=== PATIENT | male | born 1965 | race African-American/Black ===

== ENCOUNTER 2021-02-26 10:56 | Inpatient (IN) | payer MEDICAID ==
[~2021-02-26] VITALS: Ht 180.3 cm; Wt 87.5 kg
[2021-02-26] MEDS ORDERED: DEXAMETHASONE 10 MG/ML VIAL IV ONE (11:45)
[2021-02-26] MEDS ORDERED: AZITHROMYCIN 500MG/250ML 250 ML IV ONE (11:45)
[2021-02-26 12:08] LABS: HEMATOCRIT. 43.4 % (42.0-52.0); HEMOGLOBIN. 13.7 g/dL (14.0-18.0); MEAN CORPUSCULAR HEMOGLOBIN 22.8 pg (28.0-32.0); MEAN PLATELET VOLUME 8.4 fl (7.4-10.4); PLATELET 231 x1000/uL (130-400); RED BLOOD CELL COUNT 6.04 mill/uL (4.7-6.1); RED CELL DISTRIBUTION WIDTH 14.1 % (11.6-14.6)
[2021-02-26 12:15] LABS: CHLORIDE 99 mEq/L (98-107)
[2021-02-26 12:25] LABS: D-DIMER 1.18 mg/L FEU (<0.50); PROTHROMBIN TIME 10.3 sec (9.6-11.0)
[2021-02-26 12:39] LABS: CREATINE KINASE 2900 IU/L (39-308)
[2021-02-26 13:35] LABS: BG BASE EXCESS 2.6 mmol/L (-2.0-2.0); BG CARBOXYHEMOGLOBIN 0.5 % (0.5-1.5); BG DEOXYHEMOGLOBIN 12.8 % (0.0-5.0); BG METHEMOGLOBIN 0.2 % (0.0-1.5); BG OXYGEN SATURATION 87.1 % (92.0-98.5); BG OXYHEMOGLOBIN 86.5 % (94.0-97.0); BG PCO2 36.1 mmHg (35.0-45.0); BG PH 7.475 (7.350-7.450); BG PO2 49.1 mmHg (75.0-100.0); BG SAMPLE SITE RIGHT RADIAL; BG TOTAL HEMOGLOBIN 14.7 g/dL (12.0-18.0); BG VENT MODE VAPOTHERM
[2021-02-26 13:50] LABS: PLATELET ESTIMATE NORMAL
[2021-02-26] MEDS ORDERED: DEXAMETHASONE 10 MG/ML VIAL IV SCH (14:15)
[2021-02-26] MEDS ORDERED: CEFTRIAXONE 1 G PREMIX 50 ML IV NR (14:15)
[2021-02-26 14:46] LABS: CLARITY URINE CLEAR (CLEAR); COLOR URINE DARK YELLOW (YELLOW); KETONES URINE TRACE (NEGATIVE); LEUKOCYTE ESTERASE URINE NEGATIVE (NEGATIVE); NITRITE URINE NEGATIVE (NEGATIVE); OCCULT BLOOD URINE 3+ (NEGATIVE); PH URINE 6.5 (4.5-8.0); PROTEIN URINE 3+ (NEGATIVE); SPECIFIC GRAVITY URINE 1.024 (1.005-1.030)
[2021-02-26] MEDS: ENOXAPARIN 40MG/0.4ML SYR SUBCUT SCH (15:03)
[2021-02-26] MEDS ORDERED: KCL 20MEQ/100ML PREMIX 100 ML IV NR (17:00)
[2021-02-26] MEDS: LEVOFLOXACIN 750MG PREMIX 150 ML IV SCH (17:17)
[2021-02-27 01:46] LABS: BG BASE EXCESS 2.7 mmol/L (-2.0-2.0); BG CARBOXYHEMOGLOBIN 0.3 % (0.5-1.5); BG FRACTION INSPIRED OXYGEN 100; BG HCO3 ACT 26.4 mmol/L (22.0-26.0); BG METHEMOGLOBIN 0.2 % (0.0-1.5); BG OXYHEMOGLOBIN 94.5 % (94.0-97.0); BG PCO2 37.6 mmHg (35.0-45.0); BG PH 7.464 (7.350-7.450); BG PO2 68.6 mmHg (75.0-100.0); BG SAMPLE SITE RIGHT RADIAL; BG TOTAL HEMOGLOBIN 15.2 g/dL (12.0-18.0); BG TOTAL RESPIRATORY RATE 45 b/min; BG VENT MODE MASK - BIPAP
[2021-02-27] MEDS ORDERED: AZITHROMYCIN 250 MG in DEXT 5% WATER 250 ML IV SCH (09:00)
[2021-02-27] MEDS ORDERED: DEXAMETHASONE 10 MG/ML VIAL IV SCH (09:00)
[2021-02-27] MEDS: DEXAMETHASONE 10 MG/ML VIAL IV SCH (09:18)
[2021-02-27] MEDS ORDERED: ALBUTEROL 6.7GM HFA INHALER ORI PRN (14:15)
[2021-02-27] MEDS: ENOXAPARIN 40MG/0.4ML SYR SUBCUT SCH (14:41)
[2021-02-27] MEDS ORDERED: VANCOMYCIN 1,750 MG in DEXT 5% WATER 500 ML IV NR (15:00)
[2021-02-27] MEDS: LEVOFLOXACIN 750MG PREMIX 150 ML IV SCH (17:08)
[2021-02-27 21:30] VITALS: BP 123/76
[2021-02-27 23:02] VITALS: BP 120/76
[2021-02-28] VITALS: BP 129/77
[2021-02-28] MEDS ORDERED: VANCOMYCIN 1 G PREMIX 200 ML IV SCH (03:00)
[2021-02-28 04:00] VITALS: BP 116/68
[2021-02-28 06:43] LABS: CHLORIDE 102 mEq/L (98-107)
[2021-02-28 07:15] LABS: HEMATOCRIT. 43.4 % (42.0-52.0); HEMOGLOBIN. 13.8 g/dL (14.0-18.0); MEAN CORPUSCULAR HEMOGLOBIN 23.2 pg (28.0-32.0); MEAN CORPUSCULAR VOLUME 72.7 fL (80.0-94.0); MEAN PLATELET VOLUME 8.3 fl (7.4-10.4); PLATELET 312 x1000/uL (130-400); RED BLOOD CELL COUNT 5.97 mill/uL (4.7-6.1); RED CELL DISTRIBUTION WIDTH 14.1 % (11.6-14.6)
[2021-02-28] MEDS: DEXAMETHASONE 10 MG/ML VIAL IV SCH (08:40)
[2021-02-28] MEDS: ENOXAPARIN 40MG/0.4ML SYR SUBCUT SCH (14:36)
[2021-02-28 15:21] VITALS: BP 116/73
[2021-02-28] MEDS: LEVOFLOXACIN 750MG PREMIX 150 ML IV SCH (16:55)
[2021-02-28 20:00] VITALS: BP 116/75
[2021-02-28 22:48] LABS: *AMPHETAMINES SCREEN URINE NEGATIVE (NEGATIVE); *BARBITURATES SCREEN URINE NEGATIVE (NEGATIVE); *BENZODIAZEPINES SCREEN URINE NEGATIVE (NEGATIVE); *COCAINE SCREEN URINE NEGATIVE (NEGATIVE)
[2021-02-28 22:49] LABS: CANNABINOID URINE SCREEN NEGATIVE (NEGATIVE); METHADONE URINE SCREEN NEGATIVE (NEGATIVE); OPIATES URINE SCREEN NEGATIVE (NEGATIVE); PHENCYCLIDINE URINE SCREEN NEGATIVE (NEGATIVE)
[2021-03-01] VITALS: BP 113/66
[2021-03-01 04:00] VITALS: BP 121/73
[2021-03-01 08:00] VITALS: BP 121/74
[2021-03-01] MEDS: DEXAMETHASONE 10 MG/ML VIAL IV SCH (09:36)
[2021-03-01 12:00] VITALS: BP 126/83
[2021-03-01] MEDS: ACETAMINOPHEN 325MG TABLET PO PRN (12:39)
[2021-03-01] MEDS: ENOXAPARIN 40MG/0.4ML SYR SUBCUT SCH (14:07)
[2021-03-01 15:00] LABS: PLATELET ESTIMATE NORMAL
[2021-03-01 16:00] VITALS: BP 133/50
[2021-03-01 16:30] LABS: BG BASE EXCESS 4.1 mmol/L (-2.0-2.0); BG CARBOXYHEMOGLOBIN 0.4 % (0.5-1.5); BG DEOXYHEMOGLOBIN 4.4 % (0.0-5.0); BG FRACTION INSPIRED OXYGEN 100; BG HCO3 ACT 28.5 mmol/L (22.0-26.0); BG METHEMOGLOBIN 0.4 % (0.0-1.5); BG OXYGEN SATURATION 95.6 % (92.0-98.5); BG OXYHEMOGLOBIN 94.8 % (94.0-97.0); BG PCO2 41.6 mmHg (35.0-45.0); BG PH 7.453 (7.350-7.450); BG PO2 73.2 mmHg (75.0-100.0); BG SAMPLE SITE RIGHT RADIAL; BG TOTAL HEMOGLOBIN 14.9 g/dL (12.0-18.0); BG TOTAL RESPIRATORY RATE 29 b/min; BG VENT MODE MASK - BIPAP
[2021-03-01] MEDS: LEVOFLOXACIN 750MG PREMIX 150 ML IV SCH (17:37)
[2021-03-02] MEDS: GUAIFENESIN-DM 200MG-20MG/10ML UDC PO PRN ×5 (02:53→22:43)
[2021-03-02 04:00] VITALS: BP 145/86
[2021-03-02] MEDS: ACETAMINOPHEN 325MG TABLET PO PRN (05:27)
[2021-03-02 08:00] VITALS: BP 117/72
[2021-03-02] MEDS: DEXAMETHASONE 10 MG/ML VIAL IV SCH (08:08)
[2021-03-02 12:00] VITALS: BP 119/73
[2021-03-02] MEDS: ENOXAPARIN 40MG/0.4ML SYR SUBCUT SCH (13:59)
[2021-03-02 16:00] VITALS: BP 129/82
[2021-03-02] MEDS: LEVOFLOXACIN 750MG PREMIX 150 ML IV SCH (17:39)
[2021-03-02 20:00] VITALS: BP 127/77
[2021-03-02] MEDS: AZTREONAM 2 GM in DEXT 5% WATER 100 ML IV SCH (21:30)
[2021-03-03] VITALS (21 sets, daily range): BP systolic 62–137; BP diastolic 27–84
[2021-03-03] MEDS: AZTREONAM 2 GM in DEXT 5% WATER 100 ML IV SCH ×3 (05:15→20:48)
[2021-03-03] MEDS ORDERED: ETOMIDATE 2MG/ML 10ML VIAL IV ONE (08:36)
[2021-03-03] MEDS ORDERED: SUCCINYLCHOLINE CHLORIDE 200MG/10ML IV ONE (08:36)
[2021-03-03] MEDS: GUAIFENESIN-DM 200MG-20MG/10ML UDC PO PRN (11:12)
[2021-03-03] MEDS: DEXAMETHASONE 10 MG/ML VIAL IV SCH (14:12)
[2021-03-03] MEDS: ENOXAPARIN 40MG/0.4ML SYR SUBCUT SCH (14:12)
[2021-03-03] MEDS ORDERED: MIDAZOLAM 100MG/100ML PMX 100 ML IV PRN (17:15)
[2021-03-03 17:18] LABS: BG BASE EXCESS -1.1 mmol/L (-2.0-2.0); BG CARBOXYHEMOGLOBIN 0.5 % (0.5-1.5); BG DEOXYHEMOGLOBIN 48.9 % (0.0-5.0); BG FRACTION INSPIRED OXYGEN 100; BG HCO3 ACT 23.5 mmol/L (22.0-26.0); BG METHEMOGLOBIN 0.3 % (0.0-1.5); BG OXYGEN SATURATION 50.7 % (92.0-98.5); BG OXYHEMOGLOBIN 50.3 % (94.0-97.0); BG PCO2 39.4 mmHg (35.0-45.0); BG PH 7.394 (7.350-7.450); BG PO2 < 30.3 mmHg (75.0-100.0); BG SAMPLE SITE RIGHT BRACHIAL; BG TOTAL HEMOGLOBIN 17.4 g/dL (12.0-18.0); BG VENT MODE MASK - BIPAP
[2021-03-03] MEDS ORDERED: VECURONIUM BROMIDE 10 MG/VIAL IV NR (18:30)
[2021-03-03 18:49] LABS: BG BASE EXCESS -10.4 mmol/L (-2.0-2.0); BG FRACTION INSPIRED OXYGEN 100; BG HCO3 ACT 18.1 mmol/L (22.0-26.0); BG PCO2 49.5 mmHg (35.0-45.0); BG PO2 < 30.3 mmHg (75.0-100.0); BG SAMPLE SITE RIGHT RADIAL; BG VENT MODE PRVC
[2021-03-03] MEDS: FENTANYL CITRATE/PF 2,500 MCG in SODIUM CHLORIDE 0.9% 200 ML IV PRN (18:51)
[2021-03-03] MEDS: MIDAZOLAM HCL 100 MG in SODIUM CHLORIDE 0.9% 100 ML IV PRN ×2 (18:52→23:35)
[2021-03-03] MEDS ORDERED: SODIUM BICARBONATE 8.4% 1 MEQ/ML 50ML SYR IV NR (19:30)
[2021-03-03] MEDS: PHENYLEPHRINE 100 MG in DEXT 5% WATER 240 ML IV PRN (20:29)
[2021-03-03] MEDS: PROPOFOL 10MG/ML 100ML 100 ML IV PRN (20:42)
[2021-03-03] MEDS ORDERED: SODIUM BICARBONATE 8.4% 1 MEQ/ML 50ML SYR IV ONE (20:58)
[2021-03-03] MEDS ORDERED: NOREPINEPHRINE 8 MG in DEXT 5% WATER 242 ML IV PRN (21:00)
[2021-03-03] MEDS ORDERED: SODIUM CHLORIDE 0.9% 1,000 ML IV ONE (21:00)
[2021-03-03] MEDS: SODIUM CHLORIDE 0.9% 1,000 ML IV SCH (21:15)
[2021-03-04] VITALS (92 sets, daily range): BP systolic 78–135; BP diastolic 41–87
[2021-03-04] MEDS: NOREPINEPHRINE 32 MG in DEXT 5% WATER 218 ML IV PRN (00:40)
[2021-03-04] MEDS: FENTANYL CITRATE/PF 2,500 MCG in SODIUM CHLORIDE 0.9% 200 ML IV PRN ×3 (01:17→18:33)
[2021-03-04] MEDS: PHENYLEPHRINE 100 MG in DEXT 5% WATER 240 ML IV PRN ×4 (02:49→21:40)
[2021-03-04] MEDS: AZTREONAM 2 GM in DEXT 5% WATER 100 ML IV SCH ×2 (04:11→11:30)
[2021-03-04] MEDS: SODIUM CHLORIDE 0.9% 1,000 ML IV SCH ×2 (04:48→13:35)
[2021-03-04] MEDS: MIDAZOLAM HCL 100 MG in SODIUM CHLORIDE 0.9% 100 ML IV PRN ×3 (06:32→22:38)
[2021-03-04] MEDS: DEXAMETHASONE 10 MG/ML VIAL IV SCH (09:01)
[2021-03-04] MEDS: PROPOFOL 10MG/ML 100ML 100 ML IV PRN ×2 (09:03→23:53)
[2021-03-04 11:27] LABS: HEMATOCRIT. 52.4 % (42.0-52.0); HEMOGLOBIN. 16.4 g/dL (14.0-18.0); MEAN CORPUSCULAR VOLUME 73.3 fL (80.0-94.0); RED BLOOD CELL COUNT 7.14 mill/uL (4.7-6.1); RED CELL DISTRIBUTION WIDTH 15.3 % (11.6-14.6)
[2021-03-04 12:57] LABS: BG BASE EXCESS -8.4 mmol/L (-2.0-2.0); BG CARBOXYHEMOGLOBIN 0.6 % (0.5-1.5); BG DEOXYHEMOGLOBIN 4.6 % (0.0-5.0); BG FRACTION INSPIRED OXYGEN 100; BG HCO3 ACT 17.9 mmol/L (22.0-26.0); BG METHEMOGLOBIN 0.4 % (0.0-1.5); BG OXYGEN SATURATION 95.4 % (92.0-98.5); BG OXYHEMOGLOBIN 94.4 % (94.0-97.0); BG PCO2 39.5 mmHg (35.0-45.0); BG PH 7.273 (7.350-7.450); BG SAMPLE SITE RIGHT RADIAL; BG VENT MODE PRVC
[2021-03-04] MEDS ORDERED: IPRATROPIUM/ALBUTEROL 0.5-3(2.5)MG/3ML NEB HHN PRN (13:30)
[2021-03-04] MEDS ORDERED: SODIUM BICARBONATE 8.4% 1 MEQ/ML 50ML SYR IV SCH (13:30)
[2021-03-04] MEDS: ENOXAPARIN 40MG/0.4ML SYR SUBCUT SCH (13:37)
[2021-03-04] MEDS ORDERED: VECURONIUM BROMIDE 10 MG/VIAL IV NR (15:30)
[2021-03-04] MEDS: IPRATROPIUM/ALBUTEROL 0.5-3(2.5)MG/3ML NEB HHN SCH (16:07)
[2021-03-04] MEDS: MEROPENEM 1,000 MG in SODIUM CHLORIDE 0.9% 100 ML IV SCH (16:12)
[2021-03-04 16:40] LABS: MEAN PLATELET VOLUME 8.7 fl (7.4-10.4)
[2021-03-04 16:41] LABS: PLATELET 108 x1000/uL (130-400)
[2021-03-04] MEDS ORDERED: VANCOMYCIN 1 G PREMIX 200 ML IV NR (17:00)
[2021-03-05] VITALS (94 sets, daily range): BP systolic 30–162; BP diastolic 17–106
[2021-03-05] MEDS: IPRATROPIUM/ALBUTEROL 0.5-3(2.5)MG/3ML NEB HHN SCH ×3 (00:17→13:04)
[2021-03-05] MEDS: FENTANYL CITRATE/PF 2,500 MCG in SODIUM CHLORIDE 0.9% 200 ML IV PRN ×2 (02:43→09:31)
[2021-03-05] MEDS: SODIUM CHLORIDE 0.9% 1,000 ML IV SCH (03:14)
[2021-03-05] MEDS: PHENYLEPHRINE 100 MG in DEXT 5% WATER 240 ML IV PRN ×3 (03:15→17:03)
[2021-03-05] MEDS: NOREPINEPHRINE 32 MG in DEXT 5% WATER 218 ML IV PRN ×2 (04:47→17:34)
[2021-03-05] MEDS: MIDAZOLAM HCL 100 MG in SODIUM CHLORIDE 0.9% 100 ML IV PRN ×3 (04:59→20:25)
[2021-03-05] MEDS: PROPOFOL 10MG/ML 100ML 100 ML IV PRN ×2 (07:43→14:58)
[2021-03-05] MEDS: DEXAMETHASONE 10 MG/ML VIAL IV SCH (09:31)
[2021-03-05] MEDS ORDERED: SODIUM POLYSTYRENE SULFONATE 15 G/60 ML BOT NG SCH (10:30)
[2021-03-05] MEDS ORDERED: SODIUM BICARBONATE 8.4% 1 MEQ/ML 50ML SYR IV SCH (10:30)
[2021-03-05 11:43] LABS: BG BASE EXCESS -11.3 mmol/L (-2.0-2.0); BG CARBOXYHEMOGLOBIN 0.1 % (0.5-1.5); BG DEOXYHEMOGLOBIN 3.3 % (0.0-5.0); BG FRACTION INSPIRED OXYGEN 100; BG HCO3 ACT 18.9 mmol/L (22.0-26.0); BG METHEMOGLOBIN 0.4 % (0.0-1.5); BG OXYGEN SATURATION 96.7 % (92.0-98.5); BG OXYHEMOGLOBIN 96.2 % (94.0-97.0); BG PCO2 61.4 mmHg (35.0-45.0); BG PH 7.107 (7.350-7.450); BG PO2 114.1 mmHg (75.0-100.0); BG SAMPLE SITE LEFT RADIAL; BG TOTAL HEMOGLOBIN 14.4 g/dL (12.0-18.0); BG VENT MODE VENT - P/C
[2021-03-05] MEDS ORDERED: CALCIUM GLUCONATE 1,000 MG in DEXT 5% WATER 90 ML IV ONE (11:45)
[2021-03-05] MEDS ORDERED: SODIUM POLYSTYRENE SULFONATE 15 G/60 ML BOT PO NR ×2 (11:45→21:45)
[2021-03-05] MEDS ORDERED: SODIUM BICARBONATE 8.4% 1 MEQ/ML 50ML SYR IV NR ×2 (11:45→17:00)
[2021-03-05] MEDS ORDERED: SODIUM BICARBONATE 150 MEQ in DEXTROSE 5% WATER 1,000 ML IV SCH (12:00)
[2021-03-05] MEDS ORDERED: CALCIUM GLUCONATE 1GM PREMIX 50 ML IV SCH ×2 (12:00→21:00)
[2021-03-05] MEDS ORDERED: VASOPRESSIN 20 UNIT in SODIUM CHLORIDE 0.9% 99 ML IV PRN ×2 (12:00→17:30)
[2021-03-05] MEDS ORDERED: CALCITRIOL 1MCG/ML AMP IV SCH (12:30)
[2021-03-05] MEDS ORDERED: VANCOMYCIN 500 MG PREMIX 100 ML IV NR (13:00)
[2021-03-05 16:02] LABS: BG CARBOXYHEMOGLOBIN 0.1 % (0.5-1.5); BG FRACTION INSPIRED OXYGEN 100; BG HCO3 ACT 12.2 mmol/L (22.0-26.0); BG METHEMOGLOBIN 0.5 % (0.0-1.5); BG OXYHEMOGLOBIN 96.4 % (94.0-97.0); BG PCO2 50.3 mmHg (35.0-45.0); BG PH 7.004 (7.350-7.450); BG PO2 126.3 mmHg (75.0-100.0); BG SAMPLE SITE LEFT RADIAL; BG TOTAL HEMOGLOBIN 14.7 g/dL (12.0-18.0); BG VENT MODE VENT - P/C
[2021-03-05] MEDS ORDERED: ASPIRIN 81MG TABLET PO SCH (17:15)
[2021-03-05] MEDS ORDERED: CLOPIDOGREL 75MG TABLET PO SCH (17:15)
[2021-03-05 17:19] LABS: NUCLEATED RED BLOOD CELLS 1 /100 WBC
[2021-03-05 17:20] LABS: PLATELET ESTIMATE DECREASED
[2021-03-05] MEDS: MEROPENEM 1,000 MG in SODIUM CHLORIDE 0.9% 100 ML IV SCH (17:38)
[2021-03-05] MEDS ORDERED: ATORVASTATIN CALCIUM 40MG TABLET PO SCH (21:00)
[2021-03-05] MEDS: IPRATROPIUM BROMIDE (0.02%) 0.5MG/2.5ML NEB HHN SCH (21:03)
[2021-03-05] MEDS ORDERED: INSULIN GLARGINE UD 100 UNITS/ML SYR SUBCUT NR (21:45)
[2021-03-05] MEDS ORDERED: DEXTROSE 50% WATER 50ML SYRINGE IV ONE (21:45)
[2021-03-05] MEDS ORDERED: HYDROCORTISONE SOD SUCCINATE 100 MG/2 ML VIAL IV SCH (22:00)
[2021-03-05] MEDS ORDERED: DOPAMINE 800MG PREMIX (DOUBLE) 250 ML IV PRN (23:15)
[2021-03-05] MEDS ORDERED: MIDODRINE HCL 5MG TABLET PO SCH (23:15)
[2021-03-06] VITALS (14 sets, daily range): BP systolic 69–125; BP diastolic 16–79
[2021-03-06] MEDS: PHENYLEPHRINE 100 MG in DEXT 5% WATER 240 ML IV PRN (00:04)
[2021-03-06] MEDS: NOREPINEPHRINE 32 MG in DEXT 5% WATER 218 ML IV PRN (00:05)
[2021-03-06] MEDS: IPRATROPIUM BROMIDE (0.02%) 0.5MG/2.5ML NEB HHN SCH (00:46)
[2021-03-06 01:36] LABS: HEMATOCRIT. 46.4 % (42.0-52.0); HEMOGLOBIN. 12.8 g/dL (14.0-18.0); MEAN CORPUSCULAR HEMOGLOBIN 22.8 pg (28.0-32.0); MEAN CORPUSCULAR VOLUME 82.4 fL (80.0-94.0); RED BLOOD CELL COUNT 5.63 mill/uL (4.7-6.1)
[2021-03-06 08:24] LABS: PLATELET ESTIMATE DECREASED
[2021-03-06 08:27] LABS: MEAN PLATELET VOLUME 8.8 fl (7.4-10.4); PLATELET 54 x1000/uL (130-400)
[2021-03-06] MEDS ORDERED: SODIUM BICARBONATE 8.4% 1 MEQ/ML 50ML SYR IV ONE (09:18)
[2021-03-06] MEDS ORDERED: EPINEPHRINE 0.1MG/ML (1:10,000) 10ML SYR ONE (09:18)
[2021-03-06] MEDS ORDERED: DEXTROSE 50% WATER 50ML SYRINGE IV ONE (09:18)
[2021-03-06] MEDS ORDERED: CALCIUM CHLORIDE 1GM/10ML SYR IV ONE (09:18)
== END 2021-03-06 02:44 | DRG 720 ==
LOC: ER 11:20 → MICUSO 13:51 → EDBEDREQSVC 13:53 → 7EST 02-27 21:22 → 7WST 03-04 06:38 → MICUSO 03-05 06:00
PROVIDERS: ADMIT Family Medicine Adult Medicine; ATTEND Family Medicine Adult Medicine
PROC: 5A0935A Assistance with Respiratory Ventilation, Less than 24 Consecutive Hours, High Flow/Velocity Cannula (ICD-10-PCS; principal; 2021-02-26)
PROC: 5A09557 Assistance with Respiratory Ventilation, Greater than 96 Consecutive Hours, Continuous Positive Airway Pressure (ICD-10-PCS; 2021-02-26)
PROC: 5A1945Z Respiratory Ventilation, 24-96 Consecutive Hours (ICD-10-PCS; 2021-03-03)
PROC: 0BH17EZ Insertion of Endotracheal Airway into Trachea, Via Natural or Artificial Opening (ICD-10-PCS; 2021-03-03)
PROC: 06HY33Z Insertion of Infusion Device into Lower Vein, Percutaneous Approach (ICD-10-PCS; 2021-03-03)
PROC: 5A12012 Performance of Cardiac Output, Single, Manual (ICD-10-PCS; 2021-03-06)
DX: A41.89 Other specified sepsis (principal); I46.9 Cardiac arrest, cause unspecified; I63.9 Cerebral infarction, unspecified; J12.82 Pneumonia due to coronavirus disease 2019; J96.01 Acute respiratory failure with hypoxia; U07.1 COVID-19; E44.0 Moderate protein-calorie malnutrition; R65.21 Severe sepsis with septic shock; G93.40 Encephalopathy, unspecified; J45.909 Unspecified asthma, uncomplicated; E87.6 Hypokalemia; M62.82 Rhabdomyolysis; E88.09 Other disorders of plasma-protein metabolism, not elsewhere classified; F17.210 Nicotine dependence, cigarettes, uncomplicated; D89.839 Cytokine release syndrome, grade unspecified; E83.51 Hypocalcemia; E87.2 Acidosis; E87.5 Hyperkalemia; N17.9 Acute kidney failure, unspecified; Z88.0 Allergy status to penicillin; Z68.26 Body mass index [BMI] 26.0-26.9, adult
CPT/HCPCS: 31500; 36415; 36600; 71045; 74018; 76770; 80048; 80053; 80202; 80305; 81003; 82375; 82550; 82728; 82805; 82962; 83605; 83615; 83880; 84145; 84478; 84484; 85025; 85379; 85384; 86140; 87070; 93005; 93970; 94002; 94003; 94640; 94660; 99291; J0330; J0456; J0610; J0636; J1100; J1265; J1650; J1720; J1815; J1956; J2185; J2250; J2370; J2704; J3010; J3370; J3480; J3490; J7030; J7040; J7050; J7060; J7070; U0003; U0005